=== PATIENT | male | born 1960 | race Caucasian/White ===

== ENCOUNTER 2018-02-01 22:11 | Inpatient (IN) | payer OTHER ==
[~2018-02-01] VITALS: Ht 193 cm; Wt 155.6 kg
[~2018-02-01 22:11] MED LIST: ATORVASTATIN CA20 M1 PO; CLINDAMYCIN HC300 MG PO; GLYBURIDE5 MG PO; HYDROCHLOROTH12.5 M2 PO; LAC PO; LANTUS SOLOS100 U/M1 SQ; LOTENSIN40 MG PO; METFORMIN HCL1000 MG PO; METHOCARBAMOL750 MG PO; MOTRIN800 MG PO; NOR5 PO; PROTONIX40 MG PO; SOMA350 MG PO
[2018-02-01 22:20] VITALS: Ht 193 cm; Wt 155.6 kg
[2018-02-01 22:59] LABS: BASOPHIL % 0.7 % (0-2); RED CELL DISTRIBUTION WIDTH 13.1 % (11.5-14.5)
[2018-02-01 23:03] LABS: PLATELET COUNT 421 x10^3mcL (130-400)
[2018-02-01 23:12] LABS: CALCIUM 8.4 mg/dL (8.5-10.1); CARBON DIOXIDE 24.7 mmol/L (21-32); CHLORIDE SERUM 101 mmol/L (98-107); CREATININE SERUM 1.3 mg/dL (0.7-1.3); GFR1 > 60 mL/min; GLUCOSE SERUM 139 mg/dL (74-106); POTASSIUM SERUM 3.4 mmol/L (3.5-5.1); SODIUM SERUM 137 mmol/L (136-145)
[2018-02-01 23:16] LABS: ALBUMIN 3.9 g/dL (3.4-5.0); ALKALINE PHOSPHATASE 57 U/L (46-116); ALT/SGPT 16 U/L (16-63); AST/SGOT 31 U/L (15-37); BILIRUBIN TOTAL 0.4 mg/dL (0.20-1.00); LIPASE 137 IU/L (73-393); TOTAL PROTEIN, SERUM 7.4 g/dL (6.4-8.2)
[2018-02-02] VITALS (8 sets, daily range): BP systolic 125–166; BP diastolic 60–91
[2018-02-02] MEDS ORDERED: LANTUS SOLOS100 U/M1 SQ (01:33)
[2018-02-02] MEDS ORDERED: GLYBURIDE5 MG PO (01:34)
[2018-02-02 02:09] LABS: AMYLASE 26 U/L (25-115); CHOLESTEROL 141 mg/dL (<200); PHOSPHOROUS 3.5 mg/dL (2.5-4.9)
[2018-02-02 02:14] LABS: CHOLESTEROL/HDL RATIO 6.7; HDL CHOLESTEROL 21 mg/dL (40-60); TRIGLYCERIDES 986 mg/dL (<150)
[2018-02-02 02:18] LABS: T3 TOTAL 0.91 ng/mL
[2018-02-02 02:19] LABS: FREE T4 1.03 ng/dL (0.76-1.46); FREE THYROXINE INDEX 2.6 ug/dL (1.4-4.5); T4(THYROXINE) 7.9 ug/dL (4.7-13.3)
[2018-02-02] MEDS ORDERED: JANUVIA100 M1 PO (02:37)
[2018-02-02] MEDS ORDERED: PROTONIX20 MG PO (02:38)
[2018-02-02] MEDS ORDERED: NOR5 PO (09:25)
[2018-02-02 10:30] LABS: BASOPHIL % 0.5 % (0-2); PLATELET COUNT 381 x10^3mcL (130-400); RED CELL DISTRIBUTION WIDTH 13.3 % (11.5-14.5)
[2018-02-02 10:48] LABS: CALCIUM 8.6 mg/dL (8.5-10.1); CARBON DIOXIDE 25.5 mmol/L (21-32); CHLORIDE SERUM 103 mmol/L (98-107); CREATININE SERUM 1.2 mg/dL (0.7-1.3); GFR1 > 60 mL/min; GLUCOSE SERUM 202 mg/dL (74-106); POTASSIUM SERUM 4.5 mmol/L (3.5-5.1); SODIUM SERUM 136 mmol/L (136-145)
[2018-02-02 12:18] LABS: microscopic required? NO
[2018-02-02 13:18] LABS: UA SPECIFIC GRAVITY 1.015 (1.005-1.035); urine erythrocyte NEGATIVE (NEGATIVE)
[2018-02-02 13:52] LABS: AMPHETAMINE QUAL UR NONE DETECTED (NEG <=1000)
[2018-02-03 06:45] LABS: BASOPHIL % 0.5 % (0-2); PLATELET COUNT 340 x10^3mcL (130-400); RED CELL DISTRIBUTION WIDTH 13.2 % (11.5-14.5)
[2018-02-03 06:54] VITALS: BP 156/84
[2018-02-03 06:55] LABS: CALCIUM 8.4 mg/dL (8.5-10.1); CARBON DIOXIDE 27.2 mmol/L (21-32); CHLORIDE SERUM 105 mmol/L (98-107); CREATININE SERUM 1.1 mg/dL (0.7-1.3); GFR1 > 60 mL/min; GLUCOSE SERUM 171 mg/dL (74-106); POTASSIUM SERUM 4.2 mmol/L (3.5-5.1); SODIUM SERUM 136 mmol/L (136-145)
[2018-02-03 09:00] VITALS: BP 147/84
[2018-02-03] MEDS ORDERED: NOR10 PO (09:52)
[2018-02-03] MEDS ORDERED: LEVEMIR100 U/M1 SC (10:06)
[2018-02-03 11:49] VITALS: BP 147/84
[2018-02-03 12:47] VITALS: BP 160/91
== END 2018-02-03 14:29 | disposition home or self-care (01) | DRG 78 ==
LOC: ED 22:11 → DU 02-02 01:14
PROVIDERS: Emergency Medicine; Family Medicine
DX: I67.4 Hypertensive encephalopathy (principal); R65.10 Systemic inflammatory response syndrome (SIRS) of non-infectious origin without acute organ dysfunction; I10 Essential (primary) hypertension; E11.9 Type 2 diabetes mellitus without complications; G89.29 Other chronic pain; M54.9 Dorsalgia, unspecified; E11.65 Type 2 diabetes mellitus with hyperglycemia; E87.6 Hypokalemia; K80.20 Calculus of gallbladder without cholecystitis without obstruction; E78.1 Pure hyperglyceridemia; E02 Subclinical iodine-deficiency hypothyroidism; Z86.711 Personal history of pulmonary embolism; Z83.3 Family history of diabetes mellitus; Z82.49 Family history of ischemic heart disease and other diseases of the circulatory system
CPT/HCPCS: 82962; 83880; 84439; 87804; J1815; J1956; J2060; J2405; J7030; J7050; J8597; Q0092; Q9967